=== PATIENT | female | born 1935 | race African-American/Black ===

== ENCOUNTER 2019-07-29 15:13 | Inpatient (IN) | payer MEDICARE, OTHER ==
[~2019-07-29] VITALS: Ht 175.3 cm; Wt 59.9 kg
[~2019-07-29 15:13] MED LIST: AMLODIPINE PO; ASPI-1079 PO; CYAN50003 PO; HYDR-4135 PO; LOSA100T3 PO; METROPOLOL PO; TAMS-11 PO
[2019-07-29 17:40] LABS: BASOPHILS % 1.5 % (0.0-2.0); EOSINOPHILS % 2.2 % (0.0-5.0); HEMATOCRIT. 37.2 % (36.0-48.0); HEMOGLOBIN. 12.5 g/dL (12.0-16.0); LYMPHOCYTES % 31.3 % (20.0-50.0); MEAN CORPUSCULAR HEMOGLOBIN 29.2 pg (28.0-32.0); MEAN CORPUSCULAR VOLUME 87.4 fL (81.0-99.0); MEAN PLATELET VOLUME 8.4 fl (7.4-10.4); MONOCYTES % 7.4 % (2.0-8.0); NEUTROPHILS % 57.6 % (40.0-76.0); PLATELET 176 x1000/uL (130-400); RED BLOOD CELL COUNT 4.26 mill/uL (4.2-5.4); RED CELL DISTRIBUTION WIDTH 16.3 % (11.6-14.6)
[2019-07-29 17:43] LABS: CHLORIDE 99 mEq/L (98-107)
[2019-07-29 23:00] VITALS: BP 214/81
[2019-07-29 23:27] VITALS: BP 214/81
[2019-07-30] MEDS ORDERED: ACETAMINOPHEN 325MG TABLET PO PRN (00:30)
[2019-07-30] MEDS ORDERED: ONDANSETRON HCL 4MG/2ML INJ IV PRN (00:30)
[2019-07-30] MEDS ORDERED: DIPHENHYDRAMINE 50MG/ML VIAL IV PRN (00:30)
[2019-07-30] MEDS: HYDRALAZINE 20MG/ML VIAL IV PRN (00:53)
[2019-07-30 01:45] VITALS: BP 118/64
[2019-07-30 04:00] VITALS: BP 191/77
[2019-07-30] MEDS: HYDRALAZINE HCL 50MG TABLET PO SCH ×3 (05:17→21:25)
[2019-07-30] MEDS: SODIUM CHLORIDE 0.9% INJ 3ML FLUSH IVF SCH ×3 (05:17→21:25)
[2019-07-30] MEDS: CLONIDINE 0.1MG TABLET PO PRN (06:55)
[2019-07-30 08:00] VITALS: BP 158/84
[2019-07-30] MEDS: ENOXAPARIN 30MG/0.3ML SYR SUBCUT SCH (09:00)
[2019-07-30] MEDS: LOSARTAN POTASSIUM 100 MG TABLET PO SCH (09:53)
[2019-07-30] MEDS: AMLODIPINE 5MG TABLET PO SCH ×2 (09:53→21:25)
[2019-07-30 12:00] VITALS: BP 174/85
[2019-07-30 16:00] VITALS: BP 171/83
[2019-07-30 20:00] VITALS: BP 228/97
[2019-07-30] MEDS ORDERED: FAMOTIDINE 20MG TABLET PO SCH (21:00)
[2019-07-31] VITALS (8 sets, daily range): BP systolic 152–206; BP diastolic 68–121
[2019-07-31] MEDS: HYDRALAZINE 20MG/ML VIAL IV PRN (00:53)
[2019-07-31] MEDS: SODIUM CHLORIDE 0.9% INJ 3ML FLUSH IVF SCH ×2 (05:28→13:25)
[2019-07-31] MEDS: HYDRALAZINE HCL 50MG TABLET PO SCH (05:28)
[2019-07-31] MEDS: CLONIDINE 0.1MG TABLET PO PRN (07:01)
[2019-07-31] MEDS: AMLODIPINE 5MG TABLET PO SCH (08:25)
[2019-07-31] MEDS: LOSARTAN POTASSIUM 100 MG TABLET PO SCH (08:26)
[2019-07-31] MEDS: ENOXAPARIN 30MG/0.3ML SYR SUBCUT SCH (08:28)
[2019-07-31] MEDS ORDERED: HYDRALAZINE HCL 50MG TABLET PO SCH (09:00)
[2019-07-31] MEDS ORDERED: METOPROLOL TARTRATE 50MG TABLET PO SCH (09:00)
[2019-07-31] MEDS: HYDRALAZINE HCL 25MG TABLET PO SCH ×2 (12:28→16:48)
== END 2019-07-31 17:59 | disposition home or self-care (01) | DRG 291 ==
LOC: ER 15:13 → 8WST 18:36 → EDBEDREQTM 18:41 → EDBEDREQ 18:41 → ENRESERV 21:39
PROVIDERS: ADMIT Internal Medicine; ATTEND Internal Medicine
PROC: 5A1D70Z Performance of Urinary Filtration, Intermittent, Less than 6 Hours Per Day (ICD-10-PCS; principal; 2019-07-30)
DX: I13.2 Hypertensive heart and chronic kidney disease with heart failure and with stage 5 chronic kidney disease, or end stage renal disease (principal); N18.6 End stage renal disease; K56.609 Unspecified intestinal obstruction, unspecified as to partial versus complete obstruction; E11.22 Type 2 diabetes mellitus with diabetic chronic kidney disease; I50.9 Heart failure, unspecified; M19.90 Unspecified osteoarthritis, unspecified site; Z60.2 Problems related to living alone; E11.51 Type 2 diabetes mellitus with diabetic peripheral angiopathy without gangrene; Z53.9 Procedure and treatment not carried out, unspecified reason; Z96.649 Presence of unspecified artificial hip joint; Z99.2 Dependence on renal dialysis; Z79.82 Long term (current) use of aspirin; Z79.899 Other long term (current) drug therapy
CPT/HCPCS: 36415; 71045; 83880; 84484; 93005; 99285; J0360; J1650

== ENCOUNTER 2020-01-17 19:01 | Inpatient (IN) | payer MEDICARE, OTHER ==
[~2020-01-17] VITALS: Ht 165.1 cm; Wt 61.5 kg
[~2020-01-17 19:01] MED LIST changes: -AMLODIPINE PO
[2020-01-17] MEDS: AMPICILLIN SOD/SULBACTAM NA 3 G in SODIUM CHLORIDE 0.9% 100 ML IV SCH (20:15)
[2020-01-17 20:40] LABS: BASOPHILS % 0.6 % (0.0-2.0); HEMATOCRIT. 34.6 % (36.0-48.0); HEMOGLOBIN. 11.6 g/dL (12.0-16.0); LYMPHOCYTES % 16.6 % (20.0-50.0); MEAN CORPUSCULAR HEMOGLOBIN 29.1 pg (28.0-32.0); MEAN PLATELET VOLUME 7.2 fl (7.4-10.4); MONOCYTES % 11.2 % (2.0-8.0); NEUTROPHILS % 70.6 % (40.0-76.0); PLATELET 268 x1000/uL (130-400); RED BLOOD CELL COUNT 3.98 mill/uL (4.2-5.4); RED CELL DISTRIBUTION WIDTH 14.4 % (11.6-14.6)
[2020-01-17 20:45] LABS: CHLORIDE 100 mEq/L (98-107)
[2020-01-17] MEDS ORDERED: HYDRALAZINE 20MG/ML VIAL IV ONE ×2 (21:45→23:30)
[2020-01-18] VITALS (8 sets, daily range): BP systolic 154–194; BP diastolic 68–94
[2020-01-18] MEDS ORDERED: HYDRALAZINE HCL 100MG TABLET PO ONE (02:30)
[2020-01-18] MEDS: AMPICILLIN SOD/SULBACTAM NA 3 G in SODIUM CHLORIDE 0.9% 100 ML IV SCH (03:08)
[2020-01-18] MEDS ORDERED: ONDANSETRON HCL 4MG/2ML INJ IV PRN (11:30)
[2020-01-18] MEDS: HEPARIN 5000 UNITS/ML VIAL SUBCUT SCH ×2 (12:18→21:23)
[2020-01-18] MEDS: ACETAMINOPHEN 325MG TABLET PO PRN (12:19)
[2020-01-18] MEDS: ASPIRIN 81MG TABLET PO SCH (12:19)
[2020-01-18] MEDS: LOSARTAN POTASSIUM 100 MG TABLET PO SCH (12:19)
[2020-01-18] MEDS: CLONIDINE 0.1MG TABLET PO PRN ×2 (12:20→22:11)
[2020-01-18] MEDS ORDERED: PIPERACILLIN/TAZOBACTAM 2.25 G in DEXTROSE 5% WATER 50 ML IV SCH (13:00)
[2020-01-18] MEDS ORDERED: VANCOMYCIN 1250MG in DEXTROSE 5% WATER 250ML IV NR (13:30)
[2020-01-18] MEDS: HYDRALAZINE HCL 50MG TABLET PO SCH ×2 (13:38→21:23)
[2020-01-18] MEDS ORDERED: AMPICILLIN SOD/SULBACTAM NA 3 G in SODIUM CHLORIDE 0.9% 100 ML IV SCH (15:00)
[2020-01-18] MEDS ORDERED: LIDOCAINE HCL/PF 1% 10 MG/ML 30ML VIAL INFIL SCH (15:00)
[2020-01-18] MEDS ORDERED: DEXTROSE 50% WATER 50ML SYRINGE IV PRN (15:15)
[2020-01-18] MEDS: PIPERACILLIN/TAZOBACTAM 2.25 G in DEXTROSE 5% WATER 50 ML IV SCH (15:17)
[2020-01-18] MEDS ORDERED: MORPHINE SULFATE 2 MG/ML CPJ (NOT FOR IM USE) IV NR (15:30)
[2020-01-18] MEDS: GABAPENTIN 100MG CAPSULE PO SCH ×2 (16:15→21:23)
[2020-01-18] MEDS: BLOOD SUGAR DIAGNOSTIC STRIP TEST SCH ×2 (16:50→21:00)
[2020-01-18] MEDS: HYDRALAZINE 20MG/ML VIAL IV PRN (16:58)
[2020-01-18] MEDS: INSULIN LISPRO 100 UNITS/ML SUBCUT SCH ×2 (18:05→21:00)
[2020-01-18] MEDS ORDERED: TAMSULOSIN HCL 0.4MG SR CAPSULE PO SCH (21:00)
[2020-01-18] MEDS: AMLODIPINE 5MG TABLET PO SCH (21:23)
[2020-01-19] VITALS (11 sets, daily range): BP systolic 123–186; BP diastolic 53–98
[2020-01-19] MEDS: ACETAMINOPHEN 325MG TABLET PO PRN ×2 (01:17→11:36)
[2020-01-19] MEDS: HYDRALAZINE 20MG/ML VIAL IV PRN (01:18)
[2020-01-19] MEDS: PIPERACILLIN/TAZOBACTAM 2.25 G in DEXTROSE 5% WATER 50 ML IV SCH ×2 (01:35→14:07)
[2020-01-19] MEDS: HYDRALAZINE HCL 50MG TABLET PO SCH (06:19)
[2020-01-19] MEDS: INSULIN LISPRO 100 UNITS/ML SUBCUT SCH ×3 (06:20→17:45)
[2020-01-19] MEDS: BLOOD SUGAR DIAGNOSTIC STRIP TEST SCH ×3 (06:20→17:44)
[2020-01-19] MEDS: GABAPENTIN 100MG CAPSULE PO SCH ×2 (06:20→14:07)
[2020-01-19 06:54] LABS: BASOPHILS % 0.5 % (0.0-2.0); EOSINOPHILS % 2.6 % (0.0-5.0); HEMOGLOBIN. 10.1 g/dL (12.0-16.0); LYMPHOCYTES % 11.1 % (20.0-50.0); MEAN CORPUSCULAR HEMOGLOBIN 29.3 pg (28.0-32.0); MEAN CORPUSCULAR VOLUME 87.3 fL (81.0-99.0); MEAN PLATELET VOLUME 7.7 fl (7.4-10.4); MONOCYTES % 8.8 % (2.0-8.0); PLATELET 202 x1000/uL (130-400); RED BLOOD CELL COUNT 3.44 mill/uL (4.2-5.4); RED CELL DISTRIBUTION WIDTH 14.7 % (11.6-14.6)
[2020-01-19 08:04] LABS: CHLORIDE 97 mEq/L (98-107)
[2020-01-19] MEDS: ASPIRIN 81MG TABLET PO SCH (11:36)
[2020-01-19] MEDS: AMLODIPINE 5MG TABLET PO SCH (11:38)
[2020-01-19] MEDS: LOSARTAN POTASSIUM 100 MG TABLET PO SCH (11:38)
[2020-01-19] MEDS: HEPARIN 5000 UNITS/ML VIAL SUBCUT SCH (11:39)
[2020-01-19] MEDS ORDERED: HYDRALAZINE HCL 100MG TABLET PO SCH (14:00)
[2020-01-19] MEDS ORDERED: HYDR100T26 MT (16:31)
[2020-01-19] MEDS ORDERED: HYDR-4001 MT ×2 (16:31→16:33)
[2020-01-19] MEDS ORDERED: GABA-529 MT (16:31)
== END 2020-01-19 20:12 | disposition home health service (06) | DRG 623 ==
LOC: ER 19:01 → 3WST 23:35 → EDBEDREQ 23:37 → EDBEDREQSVC 23:37 → EDBEDREQTM 23:37 → ENRESERV 01-18 08:22 → ER 01-18 09:25
PROVIDERS: ADMIT Internal Medicine; ATTEND Internal Medicine
PROC: 0KBW0ZZ Excision of Left Foot Muscle, Open Approach (ICD-10-PCS; principal; 2020-01-18)
PROC: 0KBV0ZZ Excision of Right Foot Muscle, Open Approach (ICD-10-PCS; 2020-01-18)
PROC: 0KBS0ZZ Excision of Right Lower Leg Muscle, Open Approach (ICD-10-PCS; 2020-01-18)
PROC: 5A1D70Z Performance of Urinary Filtration, Intermittent, Less than 6 Hours Per Day (ICD-10-PCS; 2020-01-18)
DX: E11.621 Type 2 diabetes mellitus with foot ulcer (principal); L97.415 Non-pressure chronic ulcer of right heel and midfoot with muscle involvement without evidence of necrosis; I12.0 Hypertensive chronic kidney disease with stage 5 chronic kidney disease or end stage renal disease; L97.419 Non-pressure chronic ulcer of right heel and midfoot with unspecified severity; E44.0 Moderate protein-calorie malnutrition; N18.6 End stage renal disease; E11.51 Type 2 diabetes mellitus with diabetic peripheral angiopathy without gangrene; Z99.2 Dependence on renal dialysis; E11.22 Type 2 diabetes mellitus with diabetic chronic kidney disease; J44.9 Chronic obstructive pulmonary disease, unspecified; D64.9 Anemia, unspecified; R26.89 Other abnormalities of gait and mobility; R00.1 Bradycardia, unspecified; M85.80 Other specified disorders of bone density and structure, unspecified site; Z79.899 Other long term (current) drug therapy; Z90.49 Acquired absence of other specified parts of digestive tract; Z79.82 Long term (current) use of aspirin
CPT/HCPCS: 36415; 71045; 73630; 80053; 82962; 83036; 83735; 84484; 85025; 93005; 93306; 93923; 93970; 97162; 99285; J0295; J0360; J1644; J1815; J2270; J2543; J3370; J3490; J7050; J7060

== ENCOUNTER 2020-11-20 18:27 | Emergency (ER) | payer MEDICARE, OTHER ==
[~2020-11-20] VITALS: Ht 154.9 cm; Wt 45.0 kg
[~2020-11-20 18:27] MED LIST changes: +GABA-529 MT; +HYDR-4001 MT; -HYDR-4135 PO; +HYDR100T26 MT; -METROPOLOL PO
[2020-11-20] MEDS ORDERED: ACETAMINOPHEN 325MG TABLET PO ONE (19:00)
[2020-11-20 19:28] LABS: CHLORIDE 97 mEq/L (98-107)
[2020-11-20 19:35] LABS: INR 1.2; PARTIAL THROMBOPLASTIN TIME 29.4 sec (23.4-31.0); PROTHROMBIN TIME 12.5 sec (9.6-11.0)
[2020-11-20 19:39] LABS: BASOPHILS % 0.6 % (0.0-2.0); EOSINOPHILS % 0.5 % (0.0-5.0); HEMOGLOBIN. 12.4 g/dL (12.0-16.0); LYMPHOCYTES % 20.6 % (20.0-50.0); MEAN CORPUSCULAR HEMOGLOBIN 28.4 pg (28.0-32.0); MEAN CORPUSCULAR VOLUME 89.5 fL (81.0-99.0); MEAN PLATELET VOLUME 7.9 fl (7.4-10.4); MONOCYTES % 8.5 % (2.0-8.0); NEUTROPHILS % 69.8 % (40.0-76.0); PLATELET 141 x1000/uL (130-400); RED BLOOD CELL COUNT 4.36 mill/uL (4.2-5.4); RED CELL DISTRIBUTION WIDTH 17.9 % (11.6-14.6)
[2020-11-20] MEDS ORDERED: HYDRALAZINE 20MG/ML VIAL IV ONE (22:30)
[2020-11-21] MEDS ORDERED: LORAZEPAM 2MG/ML CPJ IV PRN
[2020-11-21] MEDS ORDERED: ONDANSETRON HCL 4MG/2ML INJ IV PRN
[2020-11-21] MEDS ORDERED: IPRATROPIUM/ALBUTEROL 0.5-3(2.5)MG/3ML NEB HHN PRN
[2020-11-21] MEDS ORDERED: ACETAMINOPHEN 325MG TABLET PO PRN
[2020-11-21] MEDS ORDERED: MORPHINE SULFATE 2 MG/ML CPJ (NOT FOR IM USE) IV PRN
[2020-11-21] MEDS ORDERED: DOCUSATE SODIUM 100MG CAPSULE PO PRN
[2020-11-21] MEDS ORDERED: DIPHENHYDRAMINE 50MG/ML VIAL IV PRN
[2020-11-21] MEDS ORDERED: HYDROCODONE/ACETAMINOPHEN 5/325MG TABLET PO PRN
[2020-11-21] MEDS ORDERED: ENOXAPARIN 40MG/0.4ML SYR SUBCUT SCH
[2020-11-21] MEDS ORDERED: HYDRALAZINE 20MG/ML VIAL IV PRN
[2020-11-21] MEDS ORDERED: GUAIFENESIN 200MG/10ML SUGAR FREE UDC PO PRN
[2020-11-21] MEDS ORDERED: MAGNESIUM/ALUMINUM HYDROXIDE/SIMETHICONE 30ML UDC PO PRN
[2020-11-21] MEDS ORDERED: CLONIDINE 0.1MG TABLET PO PRN
[2020-11-21 02:36] VITALS: BP 148/61
[2020-11-21] MEDS ORDERED: SODIUM CHLORIDE 0.9% INJ 3ML FLUSH IVF SCH (06:00)
[2020-11-21] MEDS ORDERED: ENOXAPARIN 30MG/0.3ML SYR SUBCUT SCH (09:00)
== END 2020-11-21 02:36 | disposition short-term general hospital (02) ==
LOC: ER 18:27 → EDBEDREQ 22:58 → EDBEDREQTM 22:58 → EDBEDREQSVC 22:58 → CANBEDREQ 23:38 → ER 11-21 02:36
DX: S32.89XA Fracture of other parts of pelvis, initial encounter for closed fracture (principal); N19 Unspecified kidney failure; M79.604 Pain in right leg; I10 Essential (primary) hypertension; W18.39XA Other fall on same level, initial encounter; Y93.89 Activity, other specified; Y92.89 Other specified places as the place of occurrence of the external cause; Y99.8 Other external cause status; Z99.2 Dependence on renal dialysis; Z90.49 Acquired absence of other specified parts of digestive tract; Z79.899 Other long term (current) drug therapy
CPT/HCPCS: 36415; 70450; 71045; 72192; 73502; 73552; 73562; 73590; 80053; 85025; 85610; 85730; 93005; 96374; 99285; J0360